=== PATIENT | female | born 1990 | race Caucasian/White ===

== ENCOUNTER 2018-10-21 18:27 | Inpatient (IN) | payer OTHER ==
--- NOTE | 2018-10-21 19:21 | ED ---
Psychiatric Complaint - HPI Summary HPI Summary: This pt is a 28 y/o female, accompanied by friend, presenting to [facility] c/o SI for the past 1.5 weeks. She states recent stressor, breakup 3 days ago. She notes she has auditory hallucinations, voices telling her to cut and drink. Denies HI. Pt reports she has attempted suicide in the past 6 years ago by cutting. Pt reports she has been taking her medications as prescribed but notes they are not working. PMHx includes psychosis, epilepsy, anxiety, depression. Her medications include Risperidone, Depakote, Keppra. She admits to smoking cigarettes and marijuana (the last time was this afternoon ). Pt notes she quit drinking alcohol. - History Of Current Complaint Chief Complaint: EDSuicidal Time Seen by Provider: 10/21/18 18:53 Hx Obtained From: Patient Onset/Duration: Lasting Weeks, Still Present Timing: Weeks Severity Currently: Moderate Character: Depressed Aggravating Factor(s): Recent Stress Alleviating Factor(s): Nothing Associated Signs And Symptoms: Positive: Hallucinating - auditory Has Suicidal: Reports: Thoughts, Has Prior Attempt(s). Denies: With A Plan Has Homicidal: Denies: Thoughts, With A Plan Recent Stressor(s): recent breakup 3 days ago - Allergies/Home Medications Allergies/Adverse Reactions: Allergies Allergy/AdvReac Type Severity Reaction Status Date / Time amoxicillin Allergy Hives Verified 10/21/18 18:31 cefaclor [From Ceclor] Allergy Unknown Verified 10/21/18 18:31 Reaction Details morphine Allergy Hives Verified 08/26/18 12:28 Penicillins Allergy Hives Verified 08/26/18 12:28 Home Medications: Home Medications Citalopram TAB* [CeleXA TAB*] 20 mg PO DAILY 10/21/18 [History Confirmed ] risperiDONE TAB* [RisperDAL*] 3 mg PO DAILY 10/21/18 [History Confirmed 10/21/18 ] PMH/Surg Hx/FS Hx/Imm Hx Endocrine/Hematology History: Denies: Hx Diabetes Musculoskeletal History: Reports: Hx Back Problems Sensory History: Reports: Hx Contacts or Glasses Denies: Hx Hearing Aid Opthamlomology History: Reports: Hx Contacts or Glasses Neurological History: Reports: Hx Seizures - Epilipsy Psychiatric History: Reports: Hx Anxiety, Hx Depression, Hx Post Traumatic Stress Disorder, Hx Bipolar Disorder Denies: Hx Eating Disorder - Surgical History Surgical History: Yes Surgery Procedure, Year, and Place: Hysterectomy 2 years ago Infectious Disease History: No Infectious Disease History: Denies: Traveled Outside the [place] in Last 30 Days - Family History Known Family History: Positive: Seizure Disorder - epilepsy, Other - autism - Social History Alcohol Use: None Hx Substance Use: Yes Substance Use Type: Reports: Marijuana Hx Tobacco Use: Yes Smoking Status (MU): Heavy Every Day Tobacco Smoker Type: Cigarettes Review of Systems Negative: Fever, Chills Cardiovascular: Negative Respiratory: Negative Psychological: Other - POSITIVE: SI, auditory hallucinations Positive: Depressed. Negative: Other - NEGATIVE: HI All Other Systems Reviewed And Are Negative: Yes Physical Exam - Summary Physical Exam Summary: GENERAL: Patient is a well-developed and nourished female who is lying comfortable in the stretcher. Patient is not in any acute respiratory distress. HEAD AND FACE: Normocephalic EYES: PERRLA, EOMI x 2. EARS: Hearing grossly intact. MOUTH: Oropharynx within normal limits. NECK: Supple, trachea is midline, no adenopathy, no JVD, no carotid bruit. CHEST: Symmetric, no tenderness at palpation LUNGS: Clear to auscultation bilaterally. No wheezing or crackles. CVS: Regular rate and rhythm, S1 and S2 present, no murmurs or gallops appreciated. ABDOMEN: Soft, non-tender. Bowel sounds are normal. No abnormal abdominal pulsations. EXTREMITIES: Full ROM in all major joints, no edema, no cyanosis or clubbing. NEURO: Alert and oriented x 3. No acute neurological deficits. Speech is normal and follows commands. SKIN: Dry and warm Psych: Very tearful. Depressed affect. Positive SI. Positive auditory hallucinations. No HI. Triage Information Reviewed: Yes Vital Signs On Initial Exam: Initial Vitals Temp Pulse Resp BP Pulse Ox 98.5 F 82 18 136/71 98 10/21/18 18:28 10/21/18 18:28 10/21/18 18:28 10/21/18 18:28 10/21/18 18:28 Vital Signs Reviewed: Yes Diagnostics - Vital Signs Vital Signs Temp Pulse Resp BP Pulse Ox 10/21/18 18:28 98.5 F 82 18 136/71 98 - Laboratory Result Diagrams: 10/21/18 19:20 10/21/18 19:20 Lab Statement: Any lab studies that have been ordered have been reviewed, and results considered in the medical decision making process. Re-Evaluation - Re-Evaluation First Eval Re-Evaluation Time: 19:16 Comment: Pt is medically cleared. Course/Dx - Course Assessment/Plan: Pt is a 28 y/o female, accompanied by friend, presenting to [facility] c/o SI for the past 1.5 weeks. She states recent stressor, breakup 3 days ago. She notes she has auditory hallucinations, voices telling her to cut and drink. Pt is medically cleared. Pt had a mental health evaluation. Per mental health it service continuity supervisor, pt will be admitted on an involuntary status by Dr. Serrato, psychiatrist, for dx psychotic disorder NOS. - Differential Dx/Clinical Impression Provider Diagnosis: Psychotic disorder Discharge ED - Sign-Out/Discharge Documenting (check all that apply): Patient Departure - Admit to [facility] PSYCH Patient Received Moderate/Deep Sedation with Procedure: No - Discharge Plan Condition: Stable Disposition: PSYCHIATRIC FACILITY-[facility] Referrals: No Primary Care Phys,NOPCP [Primary Care Provider] - - Billing Disposition and Condition Condition: STABLE Disposition: Psychiatric Facility [facility] - Attestation Statements Document Initiated by Scribe: Yes Documenting Scribe: Becky Leung Provider For Whom Scribe is Documenting (Include Credential): Munir Soliz MD Scribe Attestation: Becky Casey scribed for Munir Soliz MD on 10/21/18 at 2124. Scribe Documentation Reviewed: Yes Provider Attestation: The documentation as recorded by the Becky simpson accurately reflects the service I personally performed and the decisions made by me, Munir Soliz MD Status of Scribe Document: Viewed
[2018-10-21 19:35] LABS: ABS Lymphocytes 2.2 10^3/ul (1.0-4.8); ABS Monocytes 0.5 10^3/ul (0-0.8); ABS Neutrophils 4.7 10^3/ul (1.5-7.7); Eosinophil % 0.3 %; Hematocrit 40 % (35-47); Hemoglobin 14.1 g/dL (12.0-16.0); Lymphocyte % 29.2 %; Mean Corpuscular HGB Conc 35 g/dL (31-36); Mean Corpuscular Hemoglobin 35 pg (27-31); Mean Corpuscular Volume 99 fL (80-97); Nucleated Red Blood Cells % 0.1; Platelet Count 229 10^3/uL (150-450); Red Blood Count 4.06 10^6 /uL (3.70-4.87); Red Cell Distribution Width 13 % (10-15); White Blood Count 7.5 10^3/uL (3.5-10.8)
[2018-10-21 19:56] LABS: ALT 7 U/L (7-52); Albumin 4.7 g/dL (3.2-5.2); Albumin/Globulin Ratio 2.2 (1-3); Alkaline Phosphatase 70 U/L (34-104); Blood Urea Nitrogen 13 mg/dL (6-24); CO2 Carbon Dioxide 32 mmol/L (22-32); Calcium 9.8 mg/dL (8.6-10.3); Chloride 103 mmol/L (101-111); EGFR African American 101.2 (>60); EGFR Non-African American 83.6 (>60); Globulin 2.1 g/dL (2-4); Glucose 97 mg/dL (70-100); Sodium 140 mmol/L (135-145); Total Protein 6.8 g/dL (6.4-8.9)
[2018-10-21 20:16] LABS: Acetaminophen < 15 mcg/mL; Alcohol < 10 mg/dL (<10); Salicylate < 2.50 mg/dL (<30)
[2018-10-21 20:27] LABS: Urine Appearance Cloudy; Urine Bilirubin Negative (Negative); Urine Blood Negative (Negative); Urine Color Yellow; Urine Glucose Negative (Negative); Urine Ketones Trace (Negative); Urine Nitrite Negative (Negative); Urine Protein Negative (Negative); Urine Specific Gravity 1.023 (1.010-1.030); Urine Urobilinogen Negative (Negative)
[2018-10-21 20:31] LABS: TSH (Thyroid Stimulating Horm) 0.98 mcIU/mL (0.34-5.60)
[2018-10-21 20:32] LABS: AST 17 U/L (13-39); Anion Gap 5 mmol/L (2-11); Potassium 4.4 mmol/L (3.5-5.0)
[2018-10-21 20:48] LABS: Urine Benzodiazepine Screen None Detected (None Detect); Urine Opiates Screen None Detected (None Detect)
[2018-10-21] MEDS ORDERED: Acetaminophen TAB* 325 MG PO ONE (21:00)
[2018-10-21] MEDS ORDERED: levETIRAcetam TAB* 500 MG PO ONE (23:18)
[2018-10-21] MEDS ORDERED: diPHENhydraMINE PO* 50 MG PO ONE (23:18)
[2018-10-21] MEDS ORDERED: risperiDONE TAB* 3 MG PO ONE (23:30)
[2018-10-22] MEDS ORDERED: Al Hydrox/Mg Hydrox/Simet LIQ* 30 ML UDC PO PRN (00:33)
[2018-10-22] MEDS ORDERED: Nicotine* 2MG (FRUIT FLAVOR) GUM PO PRN (00:33)
[2018-10-22] MEDS ORDERED: hydrOXYzine HCL TAB* 50 MG PO PRN (00:34)
[2018-10-22] MEDS ORDERED: traMADol TAB* 50 MG ONE (00:38)
[2018-10-22] MEDS ORDERED: traMADol TAB* 50 MG PO PRN (00:38)
[2018-10-22] MEDS ORDERED: Albuterol HFA INHALER* 8 gm MDI INH PRN (00:39)
[2018-10-22] MEDS: Vitamin THERAPEUTIC TAB PO SCH (08:38)
[2018-10-22] MEDS: Divalproex ER TAB(*) 500 MG PO SCH (08:38)
[2018-10-22] MEDS: Divalproex ER TAB(*) 250 MG PO SCH (08:38)
[2018-10-22] MEDS: levETIRAcetam TAB* 500 MG PO SCH ×2 (08:39→21:03)
[2018-10-22] MEDS ORDERED: risperiDONE TAB* 1 MG PO SCH (09:00)
[2018-10-22] MEDS ORDERED: Nicotine PATCH 21 MG/24 HR* PATCH TRANSDERM SCH (09:00)
[2018-10-22] MEDS: Acetaminophen TAB* 325 MG PO PRN (12:49)
[2018-10-22] MEDS ORDERED: LORazepam TAB(*) 1 MG PO PRN (13:20)
[2018-10-22] MEDS ORDERED: Ibuprofen TAB* 800 MG PO PRN (13:20)
[2018-10-22] MEDS ORDERED: Ibuprofen TAB* 800 MG PO ONE (13:24)
[2018-10-22] MEDS ORDERED: LORazepam TAB(*) 1 MG ONE (13:24)
[2018-10-22] MEDS: Nicotine PATCH 14 MG/24 HR* PATCH TRANSDERM SCH (16:21)
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
[2018-10-22] MEDS ORDERED: risperiDONE TAB* 2 MG PO SCH (21:00)
[2018-10-22] MEDS ORDERED: Nicotine Patch Removal NOTE PATCH OFF SCH (21:00)
[2018-10-22] MEDS: risperiDONE TAB* 2 MG PO SCH (21:04)
[2018-10-22] MEDS: Nicotine Patch Removal NOTE FOLLOW UP SCH (21:34)
[2018-10-23 06:51] LABS: Cholesterol 189 mg/dL; HDL Cholesterol 74.4 mg/dL; LDL Cholesterol 104 mg/dL; Triglycerides 51 mg/dL
[2018-10-23] MEDS: Divalproex ER TAB(*) 500 MG PO SCH (08:57)
[2018-10-23] MEDS: Divalproex ER TAB(*) 250 MG PO SCH (08:58)
[2018-10-23] MEDS: Escitalopram * 10 MG TAB PO SCH (08:58)
[2018-10-23] MEDS: levETIRAcetam TAB* 500 MG PO SCH ×2 (08:58→21:24)
[2018-10-23] MEDS: Nicotine PATCH 14 MG/24 HR* PATCH TRANSDERM SCH (09:00)
[2018-10-23] MEDS: Acetaminophen TAB* 325 MG PO PRN (10:59)
[2018-10-23] MEDS: Vitamin THERAPEUTIC TAB PO SCH (11:56)
--- NOTE | 2018-10-23 16:31 | PN ---
Subjective - Subjective Date of Service: 10/23/18 Service Type: 48841 Hosp care 25 min moderate complexity Subjective: Concha was dysphoric and a little tearful today. She is taking her medications and is enjoying some of the companionship that she is finding on the unit. she continues to experience visions like intrusive thoughts in her mind of her grandparents dying. She has a sharp pain in her abdomen that I called the hospitalist about. Objective - General Observations Appearance: Disheveled Appears Stated Age: No - younger Stature: WNL Posture: Slumped Eye Contact: Avoidant Behavior/Activity: WNL - Interaction Observations Attitude Towards Examiner: Cooperative, Anxious, Confused, Defensive Stated Mood: Dysphoric Affect: Labile Speech Pattern/Tone: Clear, Quiet Volume Thought Process: Coherent, Filght of Ideas Perception: Illusions Thought Content: Preoccupation/Ruminations, Obsessional, Depressive, Paranoid Thought Process: Lethality: Passive Wish Hallucination Type: Auditory, Visual Delusion Type: None - Cognitive Function Orientation: A&O x 4 Level of Consciousness: Awake, Alert, Appropriate Cognition: Impaired Cognition, Impaired Fund of Knowledge Estimated Intelligence: Borderline Range Insight: WNL Judgment Within Normal Limits: No Ability to Make Reasonable Decisions: Moderately Impaired - Medication Compliance Cooperative with Inpatient Medication Regimen: Yes - Group Participation Participates in Group Activities: Partial Assessment - Assessment Merits Inpatient Hospitalization: For Immediate Safety Clinical Impression: Concha is a 28-year-old white woman with a history of seizures and psychosis who comes to the hospital with distress intense enough to create suicidal ideation and visions of self harm by cutting. Plan - Plan Treatment Plan: Name: CONCHA LESTER Birthdate: 1990 [id number] Increase Risperdal to 4 mg. Stop Celexa. Start Lexapro 10 mg. Continue to monitor in milieu. Contact hospitalist for abdominal pain follow up. Continued Medication Management: Different Medication Medications: Current Medications Acetaminophen (Tylenol Tab*) 650 mg PO Q4H PRN PRN Reason: PAIN or TEMP > 101 F Last Admin: 10/23/18 10:59 Dose: 650 mg Al Hydrox/Mg Hydrox/Simethicone (Maalox Plus*) 30 ml PO Q4H PRN PRN Reason: INDIGESTION Albuterol (Ventolin Hfa Inhaler*) 2 puff INH Q2H PRN PRN Reason: SOB/WHEEZING Divalproex Sodium (Depakote Er Tab(*)) 500 mg PO DAILY [facility] Last Admin: 10/23/18 08:57 Dose: 500 mg Divalproex Sodium (Depakote Er Tab(*)) 250 mg PO DAILY [facility] Last Admin: 10/23/18 08:58 Dose: 250 mg Escitalopram Oxalate (Lexapro *) 10 mg PO DAILY [facility] Last Admin: 10/23/18 08:58 Dose: 10 mg Ibuprofen (Motrin Tab*) 800 mg PO Q8H PRN PRN Reason: PAIN - MODERATE Levetiracetam (Keppra Tab*) 500 mg PO DAILY [facility] Last Admin: 10/23/18 08:58 Dose: 500 mg Levetiracetam (Keppra Tab*) 1,000 mg PO BEDTIME [facility] Last Admin: 10/22/18 21:03 Dose: 1,000 mg Lorazepam (Ativan Tab(*)) 1 mg PO Q4H PRN PRN Reason: ANXIETY Multivitamins (Theragran Tab*) 1 tab PO DAILY [facility] Last Admin: 10/23/18 11:56 Dose: Not Given Nicotine (Nicotine Patch 14 Mg/24 Hr*) 1 patch TRANSDERM DAILY [facility] Last Admin: 10/23/18 09:00 Dose: 1 patch Nicotine Polacrilex (Nicotine Gum*) 2 mg PO Q2H PRN PRN Reason: CRAVINGS Pharmacy Profile Note (Nicotine Patch Removal Note*) 1 note FOLLOW UP 2100 [facility] Last Admin: 10/22/18 21:34 Dose: 1 note Risperidone (Risperdal*) 4 mg PO BEDTIME [facility] Last Admin: 10/22/18 21:04 Dose: 4 mg Tramadol HCl (Ultram*) 50 mg PO Q6H PRN PRN Reason: PAIN Last Admin: 10/23/18 10:59 Dose: 50 mg - Discharge Plan Discharge Plan: Outpatient Follow Up
--- NOTE | 2018-10-23 16:39 | PN ---
BSU: Group Therapy Note - Service Type Service Type: 19900 Group Psychotherapy - Medication Education Group: Patient was attentive and participatory in group, and remained in good behavioral control. Patient expressed positive insights regarding relevant treatment interventions. Patient stated understanding of material discussed and had appropriate questions.
[2018-10-23 17:18] LABS: HCG Pregnancy < 0.60 mIU/mL
--- NOTE | 2018-10-23 17:32 | CONS ---
HOSPITAL MEDICINE CONSULTATION REPORT: DATE OF CONSULT: 10/23/18 PROVIDER: Blanca Huston NP ATTENDING PHYSICIAN WHILE IN THE HOSPITAL: Dr. Kuldeep Smith. CONSULTING PHYSICIAN: Dr. Jlely Pimentel (dictated by Blanca Huston NP). REASON FOR CONSULT: Abdominal pain. HISTORY OF PRESENT ILLNESS: Ms. Petty is a 28-year-old female with a past medical history significant for depression, anxiety, PTSD, psychosis, epileptic seizures and celiac disease, who presented to the emergency room with complaints of hearing voices. She was ultimately admitted to the behavioral health unit on . Please see dictated H and P from Tata Mane NP, for complete details. In brief, the patient was having psychosis and hearing voices , so she was admitted to the behavioral health unit. While in the [facility] health, she complained of stabbing lower abdominal pain , so Hospital Medicine was asked to see and evaluate the patient in consultation. The patient today reports that she has had lower abdominal pain for approximately the past 2 weeks. She does report that she had a hysterectomy in February of 2017. At that time, she does report they removed 1 ovary and her uterus, but is unclear which ovary was left. She does report she has a history of ovarian cyst. The patient reports that approximately 2 weeks ago she started with stabbing lower abdominal pain that is intermittent, comes in waves. She does report that the pain does get so severe that it causes her to fall to her knees. She does report that she has had 2 episodes where she has fallen to her knees due to the pain in her lower abdomen. The patient denies any fever, chills, nausea, vomiting, or diarrhea. Denies any hematuria or dysuria. She does complain of right lower quadrant abdominal pain. She denies any black or tarry stools. Denies any bloody stools. Denies any vomiting. She denies any gross hematuria or dysuria, focal weakness or sensory loss. Denies any visual complaints, dysphagia. Denies any arthralgias or myalgias, rashes, lesions, open sores. Due to the patient's abdominal pain, Hospital Medicine was asked to see and evaluate the patient in consultation. PAST MEDICAL HISTORY: Significant for: 1. Celiac disease. 2. Epilepsy. 3. Psychosis. 4. PTSD. 5. Anxiety and depression. PAST SURGICAL HISTORY: 1. Tonsillectomy. 2. Hysterectomy. 3. Tubes in her ears. HOME MEDICATIONS: 1. Albuterol HFA inhaler 2 puffs q.4 hours as needed. 2. Risperdal 3 mg p.o. daily. 3. Citalopram 20 mg p.o. daily. 4. Keppra 1000 mg at bedtime, 500 mg in the a.m. 5. Depakote 250 mg p.o. daily. ALLERGIES: To AMOXICILLIN, CECLOR, MORPHINE, and PENICILLINS. SOCIAL HISTORY: The patient reports that she smokes 2 packs a day. Denies any alcohol use. She does report marijuana use. Surrogate decision maker in the event she is unable to make her own decisions is a friend, Clay Anderson. She is a full code. REVIEW OF SYSTEMS: A 14-point review of systems was completed. All pertinent positives are mentioned in the HPI. Otherwise were negative. PHYSICAL EXAM: General: At this time, Ms. Petty is alert and oriented, sitting on the edge of her bed in the behavioral health unit. She is in no acute distress. Vital Signs: Blood pressure 98/61, heart rate 65, respirations 16, O2 saturation 100%, temperature was 97.9. HEENT: Head is atraumatic, normocephalic. Eyes: EOMs are intact. Sclerae anicteric and not pale. Oral mucosa appeared to be moist. Neck is supple. Lungs are clear to auscultation bilaterally. No wheezes, rales, or rhonchi. Cardiac: S1, S2. Regular rate and rhythm. No murmurs, rubs, or gallops. Abdomen is soft. She does have right lower quadrant tenderness, worse with palpation. When the left abdomen is palpated, it radiates to the right causes pain in the right lower abdomen. She does have mild suprapubic tenderness. Neurologic: She is awake, alert, oriented x3. Speech is clear. Thought process is intact. There are no gross focal deficits. Skin is intact. DIAGNOSTIC STUDIES/LAB DATA: WBCs are 7.5, RBCs 4.06, hemoglobin 14.1, hematocrit is 40, platelet count is 229. Sodium 140, potassium 4.4, chloride 103, carbon dioxide 32, anion gap was 5, BUN was 13, creatinine 0.81, glucose was 97. A1c was 5.2. Calcium 9.8. ASTs were 17, ALTs were 7, alkaline phosphatase was 70. Urine was within normal limits with the exception of ketones were trace and ascorbic acid was positive. Urine toxicology: Salicylates were negative, acetaminophen was less than 15, valproic acid was 64.0, serum alcohol was less than 10, cannabinoids were positive. The rest of the urine toxicology was negative. IMPRESSION AND PLAN: Ms. Petty is a 28-year-old female with a past medical history significant for celiac disease, epileptic seizures, psychosis, posttraumatic stress disorder, anxiety and depression, who is admitted to behavioral health unit, who developed right lower quadrant abdominal pain. Hospital Medicine was asked to see in consult and make recommendations. Our recommendations are as follows: 1. Acute psychosis. Management per the psychiatric team. 2. Lower abdominal pain. The patient does have right lower quadrant abdominal pain. I am going to repeat a CBC, BMP. I will get a urine test, though the patient does report she has had a hysterectomy, this will be a confirmatory test. I will get a CT of the abdomen and pelvis to rule out appendicitis and other abdominal pathology. Within the differential is also ovarian cyst. The patient does report that she has 1 ovary left, but unknown which side. We will make further recommendations based on findings from her CAT scan. 3. FEN: The patient can continue on her regular diet. 4. Code status: She is a full code. 5. DVT prophylaxis: Per the psychiatric unit. TIME SPENT: Time spent on this consultation was 60 minutes, greater than half that time was spent at the bedside reviewing events leading thus far to her hospitalization, performing physical exam, and reviewing my plan of care. I have discussed this with my attending, Dr. Jelly Pimentel; she is in agreement with my plan. BLANCA HUSTON, [employer] [id number]/[facility] #: [id number] KENNA
[2018-10-23 17:33] LABS: Anion Gap 9 mmol/L (2-11); BUN/Creatinine Ratio 19.7 (8-20); Blood Urea Nitrogen 12 mg/dL (6-24); CO2 Carbon Dioxide 25 mmol/L (22-32); Calcium 9.2 mg/dL (8.6-10.3); Chloride 104 mmol/L (101-111); EGFR African American 140.3 (>60); Glucose 96 mg/dL (70-100); Potassium 4.6 mmol/L (3.5-5.0); Sodium 138 mmol/L (135-145)
[2018-10-23] MEDS ORDERED: Iohexol 300* (CONTRAST) 10 ML SDV IV ONE (17:55)
[2018-10-23] MEDS: risperiDONE TAB* 2 MG PO SCH (21:23)
[2018-10-23] MEDS: Nicotine Patch Removal NOTE FOLLOW UP SCH (21:23)
[2018-10-24 08:54] LABS: ABS Lymphocytes 1.8 10^3/ul (1.0-4.8); ABS Monocytes 0.4 10^3/ul (0-0.8); ABS Neutrophils 2.8 10^3/ul (1.5-7.7); Eosinophil % 0.9 %; Hematocrit 42 % (35-47); Hemoglobin 14.4 g/dL (12.0-16.0); Lymphocyte % 35.7 %; Mean Corpuscular HGB Conc 34 g/dL (31-36); Mean Corpuscular Hemoglobin 34 pg (27-31); Mean Corpuscular Volume 98 fL (80-97); Mean Platelet Volume 7.7 fL (7.4-10.4); Platelet Count 227 10^3/uL (150-450); Red Cell Distribution Width 12 % (10-15); White Blood Count 5.2 10^3/uL (3.5-10.8)
[2018-10-24] MEDS: Nicotine PATCH 14 MG/24 HR* PATCH TRANSDERM SCH (09:47)
[2018-10-24] MEDS: levETIRAcetam TAB* 500 MG PO SCH ×2 (09:48→20:54)
[2018-10-24] MEDS: Divalproex ER TAB(*) 500 MG PO SCH (09:48)
[2018-10-24] MEDS: Divalproex ER TAB(*) 250 MG PO SCH (09:48)
[2018-10-24] MEDS: Escitalopram * 10 MG TAB PO SCH (09:49)
[2018-10-24] MEDS: Vitamin THERAPEUTIC TAB PO SCH (09:50)
--- NOTE | 2018-10-24 14:58 | PN ---
Subjective - Subjective Date of Service: 10/24/18 Service Type: 04632 Hosp care 25 min moderate complexity Subjective: Concha complains of red spots on her cheeks approximately where her glasses rest. Hydrocortisone was ordered. She discusses her "visions" or hallucinations: she states that they are a comfort to her. She states she's still seeing the visions of her grandparents because she never had an opportunity to grieve. She's been talking to an ex-boyfriend she had when she was younger. She enjoys talking to him and has affectionate and loving feelings for him. She would like to go home tomorrow. She states she misses her children and her dog. She is no longer frightened by her visions and is comforted by them. She is no longer having invasive images of her cutting herself. Objective - General Observations Appearance: Unkempt Appears Stated Age: Yes Stature: WNL Posture: WNL Eye Contact: Average Behavior/Activity: WNL - Interaction Observations Attitude Towards Examiner: Cooperative, Anxious Stated Mood: Dysphoric, Anxious, Silly Affect: Full Speech Pattern/Tone: Clear Thought Process: Coherent Perception: Illusions Thought Content: Preoccupation/Ruminations Hallucination Type: None Delusion Type: Denies - Cognitive Function Orientation: A&O x 4 Level of Consciousness: Awake, Alert, Appropriate Cognition: Impaired Cognition, Impaired Fund of Knowledge Estimated Intelligence: Borderline Range Insight: WNL Judgment Within Normal Limits: No Ability to Make Reasonable Decisions: Mildly Impaired - Medication Compliance Cooperative with Inpatient Medication Regimen: Yes - Group Participation Participates in Group Activities: Yes Assessment - Assessment Merits Inpatient Hospitalization: For Immediate Safety Clinical Impression: Concha is a 28-year-old white woman with a history of seizures and psychosis who comes to the hospital with distress intense enough to create suicidal ideation and visions of self harm by cutting. Plan - Plan Treatment Plan: Name: CONCHA LESTER Birthdate: 1990 [id number] Increase Risperdal to 4 mg. Stop Celexa. Start Lexapro 10 mg. Continue to monitor in milieu. Contact hospitalist for abdominal pain follow up. Hallucinations when investigated are more likely invasive thoughts and images. Rather we will shift her to Lexapro and reduce Risperdal back to 3 mg. Medications: Current Medications Acetaminophen (Tylenol Tab*) 650 mg PO Q4H PRN PRN Reason: PAIN or TEMP > 101 F Last Admin: 10/23/18 10:59 Dose: 650 mg Al Hydrox/Mg Hydrox/Simethicone (Maalox Plus*) 30 ml PO Q4H PRN PRN Reason: INDIGESTION Albuterol (Ventolin Hfa Inhaler*) 2 puff INH Q2H PRN PRN Reason: SOB/WHEEZING Divalproex Sodium (Depakote Er Tab(*)) 500 mg PO DAILY [facility] Last Admin: 10/24/18 09:48 Dose: 500 mg Divalproex Sodium (Depakote Er Tab(*)) 250 mg PO DAILY [facility] Last Admin: 10/24/18 09:48 Dose: 250 mg Escitalopram Oxalate (Lexapro *) 10 mg PO DAILY [facility] Last Admin: 10/24/18 09:49 Dose: 10 mg Ibuprofen (Motrin Tab*) 800 mg PO Q8H PRN PRN Reason: PAIN - MODERATE Levetiracetam (Keppra Tab*) 500 mg PO DAILY [facility] Last Admin: 10/24/18 09:48 Dose: 500 mg Levetiracetam (Keppra Tab*) 1,000 mg PO BEDTIME [facility] Last Admin: 10/23/18 21:24 Dose: 1,000 mg Lorazepam (Ativan Tab(*)) 1 mg PO Q4H PRN PRN Reason: ANXIETY Multivitamins (Theragran Tab*) 1 tab PO DAILY [facility] Last Admin: 10/24/18 09:50 Dose: Not Given Nicotine (Nicotine Patch 14 Mg/24 Hr*) 1 patch TRANSDERM DAILY [facility] Last Admin: 10/24/18 09:47 Dose: 1 patch Nicotine Polacrilex (Nicotine Gum*) 2 mg PO Q2H PRN PRN Reason: CRAVINGS Pharmacy Profile Note (Nicotine Patch Removal Note*) 1 note FOLLOW UP 2100 [facility] Last Admin: 10/23/18 21:23 Dose: 1 note Risperidone (Risperdal*) 4 mg PO BEDTIME [facility] Last Admin: 10/23/18 21:23 Dose: 4 mg Tramadol HCl (Ultram*) 50 mg PO Q6H PRN PRN Reason: PAIN Last Admin: 10/23/18 10:59 Dose: 50 mg - Discharge Plan Discharge Plan: Outpatient Follow Up
[2018-10-24] MEDS: Acetaminophen TAB* 325 MG PO PRN (17:50)
[2018-10-24] MEDS: Hydrocortisone 1% CREAM* 30 GM TUBE TOPICAL SCH (17:51)
[2018-10-24] MEDS: Nicotine Patch Removal NOTE FOLLOW UP SCH (20:55)
[2018-10-24] MEDS ORDERED: risperiDONE TAB* 3 MG PO SCH (21:00)
--- NOTE | 2018-10-25 01:30 | PN ---
Subjective Date of Service: 10/24/18 Interval History: Patient evaluated at the bedside Continues to c/o abd pain lower, reports that Tramadol helps her pain. Deneis black or tarry stools . denies nausea or vomiting. denies fever or chills. Family History: Unchanged from Admission Social History: Unchanged from Admission Past Medical History: Unchanged from Admission Objective Active Medications: Acetaminophen (Tylenol Tab*) 650 mg PO Q4H PRN PRN Reason: PAIN or TEMP > 101 F Last Admin: 10/24/18 17:50 Dose: 650 mg Al Hydrox/Mg Hydrox/Simethicone (Maalox Plus*) 30 ml PO Q4H PRN PRN Reason: INDIGESTION Albuterol (Ventolin Hfa Inhaler*) 2 puff INH Q2H PRN PRN Reason: SOB/WHEEZING Divalproex Sodium (Depakote Er Tab(*)) 500 mg PO DAILY [facility] Last Admin: 10/24/18 09:48 Dose: 500 mg Divalproex Sodium (Depakote Er Tab(*)) 250 mg PO DAILY [facility] Last Admin: 10/24/18 09:48 Dose: 250 mg Escitalopram Oxalate (Lexapro *) 10 mg PO DAILY [facility] Last Admin: 10/24/18 09:49 Dose: 10 mg Hydrocortisone (Hytone Cream 1%*) 1 applic TOPICAL TID [facility] Last Admin: 10/25/18 00:00 Dose: Not Given Ibuprofen (Motrin Tab*) 800 mg PO Q8H PRN PRN Reason: PAIN - MODERATE Levetiracetam (Keppra Tab*) 500 mg PO DAILY [facility] Last Admin: 10/24/18 09:48 Dose: 500 mg Levetiracetam (Keppra Tab*) 1,000 mg PO BEDTIME [facility] Last Admin: 10/24/18 20:54 Dose: 1,000 mg Lorazepam (Ativan Tab(*)) 1 mg PO Q4H PRN PRN Reason: ANXIETY Last Admin: 10/25/18 01:02 Dose: 1 mg Multivitamins (Theragran Tab*) 1 tab PO DAILY [facility] Last Admin: 10/24/18 09:50 Dose: Not Given Nicotine (Nicotine Patch 14 Mg/24 Hr*) 1 patch TRANSDERM DAILY [facility] Last Admin: 10/24/18 09:47 Dose: 1 patch Nicotine Polacrilex (Nicotine Gum*) 2 mg PO Q2H PRN PRN Reason: CRAVINGS Pharmacy Profile Note (Nicotine Patch Removal Note*) 1 note FOLLOW UP [facility] Last Admin: 10/24/18 20:55 Dose: 1 note Risperidone (Risperdal*) 3 mg PO BEDTIME [facility] Last Admin: 10/24/18 20:55 Dose: 3 mg Tramadol HCl (Ultram*) 50 mg PO Q6H PRN PRN Reason: PAIN Last Admin: 10/23/18 10:59 Dose: 50 mg Vital Signs - 8 hr 10/24/18 10/25/18 18:45 01:02 Respiratory 17 18 Rate Oxygen Devices in Use Now: None Appearance: alert , no acute distress Eyes: No Scleral Icterus Ears/Nose/Mouth/Throat: Clear Oropharnyx, Mucous Membranes Moist Neck: NL Appearance and Movements; NL JVP, Trachea Midline Respiratory: Symmetrical Chest Expansion and Respiratory Effort, Clear to Auscultation Cardiovascular: NL Sounds; No Murmurs; No JVD, No Edema Abdominal: - - tenderness to lower abd with palpation , abd soft, BS present x 4 Extremities: No Edema, No Clubbing, Cyanosis Skin: No Rash or Ulcers Neurological: Alert and Oriented x 3 Nutrition: Taking PO's Result Diagrams: 10/24/18 08:45 10/23/18 06:20 Assess/Plan/Problems-Billing Assessment: Ms. Petty is a 28 y.o admitted to the [facility] with psychosis who complained of abd pain x 2 weeks. - Patient Problems (1) Abdominal pain Current Visit: Yes Status: Acute Code(s): R10.9 - UNSPECIFIED ABDOMINAL PAIN SNOMED Code(s): 49334886 Comment: Labs - WNL CT ABD/Pelvis - normal - no acute pathology I would recommend tylenol as needed for pain can use heat for relief as needed can try Simethicone as this could be related to gas Status and Disposition: At this time we will sign off , thank you for allowing us to participate in the care of this patient . Call if further recommendations are needed.
[2018-10-25 09:35] VITALS: BP 103/61
[2018-10-25] MEDS: Divalproex ER TAB(*) 500 MG PO SCH (10:00)
[2018-10-25] MEDS: Divalproex ER TAB(*) 250 MG PO SCH (10:01)
[2018-10-25] MEDS: levETIRAcetam TAB* 500 MG PO SCH (10:02)
[2018-10-25] MEDS: Escitalopram * 10 MG TAB PO SCH (10:03)
[2018-10-25] MEDS: Hydrocortisone 1% CREAM* 30 GM TUBE TOPICAL SCH ×2 (10:04)
[2018-10-25] MEDS: Nicotine PATCH 14 MG/24 HR* PATCH TRANSDERM SCH (10:04)
[2018-10-25] MEDS: Vitamin THERAPEUTIC TAB PO SCH (10:50)
--- NOTE | 2018-10-25 11:39 | PN ---
BSU: Group Therapy Note - Service Type Service Type: [id number] Group Psychotherapy - Cognitive Behavioral Group Therapy ( CBT):Patient was attentive and participatory in CBT programming this morning, and remained in good behavioral control. Patient expressed positive insights regarding relevant treatment interventions and goals.
--- NOTE | 2018-10-25 20:51 | DS ---
CC: [facility]; Dr. Justyn Garcia, [place], [place] * DISCHARGE SUMMARY: DATE OF ADMISSION: 10/21/18 DATE OF DISCHARGE: 10/25/18 PROVIDER: Tata Mane NP, in Psychiatry. SUPERVISING PHYSICIAN: Kuldeep Smith MD * (DICTATED BY TATA MANE NP) DIAGNOSES: 1. Psychosis, unspecified. 2. Generalized anxiety disorder. 3. Abdominal pain. CONDITION AT THE TIME OF DISCHARGE: Improved, psychiatrically cleared, stable. Participated in groups and was social with peers. Her family is agreeable to her discharge as is Concha. She has done well here psychiatrically. She tolerated new medications and medication changes and she will be attending [facility]. MENTAL STATUS EXAM: At the time of discharge, Concha is calm, cooperative, and makes good eye contact. She is alert and oriented x4. Her grooming is adequate. Her speech pace is normal. Her thought processes are logical. She is not psychotic or delusional. She denies AH, VH, SI, and HI. Her insight is fair. Her judgment is good. She is willing to follow up and she is urged to see her therapist. DISCHARGE INSTRUCTIONS TO THE PATIENT: A. Medications: 1. Albuterol inhaler 2 puffs q.4 hours p.r.n. shortness of breath. 2. Depakote 250 mg in the morning, 500 mg in the evening. 3. Lexapro 10 mg daily. 4. Hydrocortisone cream 1% apply topically 3 times a day p.r.n. itching to area under eyes. 5. Keppra 500 mg daily and 1000 mg at bedtime. 6. Lorazepam 1 mg bedtime p.r.n. insomnia. 7. Risperdal 3 mg daily at bedtime. B. Diet is a celiac diet. C. Activities are as tolerated. She has declined a referral to the [place] [employer] [facility] at this time. If she decides to access this free service in the future, she can contact the Quitline toll free at [phone]. There are no studies pending at the time of discharge. D. Followup care: She has an appointment at [facility] with her therapist, Tricia Ng on 10/29/18 at 2 p.m. She is also encouraged that she obtain a primary care physician within 30 days of discharge. E. Disposition: Concha is being discharged to her friends, Beata and Goyo, who she has been living with. F. Substance abuse followup is not indicated. HOSPITAL COURSE: Part A: Chief complaint: "No thoughts like these in 6 years and I don't know why they are back!" Concha is a 28-year-old formerly white female with a history of psychosis and seizure disorder who arrived brought in by car and is here on a 9.39 status following her assertion that she is hearing voices that are telling her to drink alcohol and run away from home. Concha has been here at this hospital for similar circumstances. She was here on 07/02/18 and discharged on 07/16/18. Concha is currently unable to explain exactly what is going on for her. She has had visions for 1 week. She refers to them as hallucinations. Rather, they are intrusive images in her head. She has visions of self-harm. She has visions of her grandfather. She also states she is hearing command hallucinations. She states she was supposed to have a doctor's appointment at [place] to talk about increasing Celexa and what is happening with her stomach (she had no problems today). She was also supposed to have a mental health appointment today. Lately, she has had no seizures, but she does have a bad headache currently. At this point, she is disorganized. She is tearful, sad, and highly anxious. She states she wants to go home in that she wants her mom and she is confused. Part B: Psychiatric treatment was rendered. Concha was admitted to the adult behavioral unit and placed on q.15-minute checks for her own safety. She did advance to 30-minute checks and staff pass. She did well on the unit and went to groups. She interacted with peers well. She tolerated medication changes including a temporary increase of Risperdal to 4 mg which was then reduced back to 3 mg. We also changed her from Celexa 20 mg to Lexapro 10mg. We made these changes based on the idea that at this time she is not experiencing a true psychosis, rather obsessive images that would be better treated with an SSRI. It seems that Concha may be misinterpreting the word hallucination. It seems instead that she is having intrusive images that are similar to those found in people who have obsessive-compulsive disorder. Concha does not meet all criteria to have obsessive-compulsive disorder, but she does seem to have intrusive images of seeing things such as her cutting herself. Those images, the alarming ones, went away during her stay here. She did maintain images of her grandparents and their voices, which she found comforting. She became quite upset when a staff member told her that they were not real. In the end what can be determined is that, she when in distress, has more troublesome and intrusive visions than when she is relaxed. Please note that her hemoglobin A1c is 5.2. Triglycerides are 51, cholesterol 189, LDL cholesterol 104, HDL cholesterol is 74.4. Her TSH is 0.98. A consult was entered because she was having stabbing stomach pain that had brought her to her knees in the past. A CT was performed and no pathological evidence was found. There is a suggestion that this could be gas pain that has been going on. Concha is eager to go home. She is future oriented. Her sleep is better. She is interested in more things and in fact is quite silly and child like at times. Her energy has increased. She is eating well. She is not suicidal and the visions she is having now of her grandparents, she finds to be comforting rather than alarming. TATA MANE NP [id number]/[facility] [place]: [id number] [place]
== END 2018-10-25 15:20 | disposition home or self-care (01) | DRG 751 ==
LOC: ED 18:27 → BSU 20:59
PROVIDERS: ADMIT Psychiatry & Neurology Psychiatry; ATTEND Psychiatry & Neurology Psychiatry
PROC: GZHZZZZ Group Psychotherapy (ICD-10-PCS; principal; 2018-10-23)
DX: F29 Unspecified psychosis not due to a substance or known physiological condition (principal); R45.851 Suicidal ideations; G40.909 Epilepsy, unspecified, not intractable, without status epilepticus; F41.9 Anxiety disorder, unspecified; F17.210 Nicotine dependence, cigarettes, uncomplicated; F43.10 Post-traumatic stress disorder, unspecified; F31.9 Bipolar disorder, unspecified; K90.0 Celiac disease; R10.30 Lower abdominal pain, unspecified; Z88.0 Allergy status to penicillin; Z88.1 Allergy status to other antibiotic agents; Z88.5 Allergy status to narcotic agent; Z90.710 Acquired absence of both cervix and uterus; Z82.0 Family history of epilepsy and other diseases of the nervous system; Z81.8 Family history of other mental and behavioral disorders; Z91.410 Personal history of adult physical and sexual abuse; Z90.721 Acquired absence of ovaries, unilateral
CPT/HCPCS: 36415; 74177; 80048; 80053; 80061; 80164; 80177; 80307; 80320; 80329; 81003; 83036; 84443; 84702; 85025; 90853; 99222; 99232; 99284; A9270-GY; G0480; Q9967